=== PATIENT | female | born 1990 | race Caucasian/White ===

== ENCOUNTER 2017-04-18 22:50 | Emergency (ER) | payer SELFPAY ==
[~2017-04-18] VITALS: Ht 162.6 cm; Wt 110.5 kg
[~2017-04-18 22:50] MED LIST: ACET500C5 PO; IBUP-1542 PO; ONDA4TAB14 PO
[2017-04-18 23:07] VITALS: Ht 162.6 cm; Wt 110.5 kg
== END 2017-04-19 02:30 | disposition left against medical advice (07) ==
LOC: FTE 22:50
DX: Z53.21 Procedure and treatment not carried out due to patient leaving prior to being seen by health care provider (principal)